=== PATIENT | female | born 1960 | race Caucasian/White ===

== ENCOUNTER → 2016-11-28 | Day surgery (SDC) | payer BC | END | disposition home or self-care (01) | LOC: SDCH 10:28 | DX: K22.10 Ulcer of esophagus without bleeding (principal); K44.9 Diaphragmatic hernia without obstruction or gangrene; K29.50 Unspecified chronic gastritis without bleeding; K21.0 Gastro-esophageal reflux disease with esophagitis; L57.0 Actinic keratosis; R53.83 Other fatigue; R06.02 Shortness of breath; M54.9 Dorsalgia, unspecified; M25.50 Pain in unspecified joint; R12 Heartburn; Z79.899 Other long term (current) drug therapy | CPT/HCPCS: 88341; 88342; J2704 ==